=== PATIENT | female | born 1990 | race African-American/Black ===

== ENCOUNTER 2017-10-19 09:18 | Outpatient (CLI) | payer OTHER ==
[~2017-10-19 09:18] MED LIST: ACETAMINOPHEN 325 MG TABLET PO PRN; DIPHENHYDRAMINE HCL 50 MG/ML VIAL IV PRN; IRON DEXTRAN COMPLEX 25 MG in NORMAL SALINE 100 ML IV PRN; IRON DEXTRAN COMPLEX 25 MG in SYRINGE, DISPOSABLE, 1 EACH IV PRN; IRON DEXTRAN COMPLEX 975 MG in NORMAL SALINE 1000 ML 1,000 ML IV PRN; NORMAL SALINE 250 ML IV PRN
[2017-10-19 13:37] VITALS: BP 126/71
== END 2017-10-19 14:39 | disposition home or self-care (01) ==
LOC: II 09:18 → 5TH 09:23 → II 14:39
PROVIDERS: ATTEND Internal Medicine
PROC: 3E033GC Introduction of Other Therapeutic Substance into Peripheral Vein, Percutaneous Approach (ICD-10-PCS; principal; 2017-10-19)
DX: D50.8 Other iron deficiency anemias (principal); K90.9 Intestinal malabsorption, unspecified
CPT/HCPCS: 96367; 96375; J1200; J1750; J7030; J3490; 96365; 96366